=== PATIENT | female | born 1990 | race Caucasian/White ===

== ENCOUNTER 2025-03-23 06:43 | Emergency (ER) | payer MEDICAID, SELFPAY ==
[2025-03-23 06:43] VITALS: BP 136/99; PULSE 99; RESP 14; TEMP 36.6; O2SAT 97; BMI 25.0
--- NOTE | 2025-03-23 06:51 | CTR_ITS ---
PROCEDURE INFORMATION: Exam: CT Abdomen And Pelvis With Contrast Exam date and time: 03/23/2025 7:56 AM Age: 35 years old Clinical indication: Abdominal pain; Additional info: Abd pain TECHNIQUE: Imaging protocol: Computed tomography of the abdomen and pelvis with contrast. Radiation optimization: All CT scans at this facility use at least one of these dose optimization techniques: automated exposure control; mA and/or kV adjustment per patient size (includes targeted exams where dose is matched to clinical indication); or iterative reconstruction. Contrast material: OMNI 350; Contrast volume: 100 ml; Contrast route: INTRAVENOUS (IV); COMPARISON: No relevant prior studies available. RADIATION DOSE METRICS: Total DLP (mGy-cm): 469.63 FINDINGS: Liver: Normal. No mass. Gallbladder and biliary ducts: Normal. No calcified stones. No ductal dilation. Pancreas: Normal. No ductal dilation. Spleen: Normal. No splenomegaly. Adrenal glands: Normal. No mass. Kidneys and ureters: Left renal simple cyst measuring 1.9 x 1.7 cm. There is mild right-sided hydroureter without definite obstructing stone. There is enhancement of the right ureter. Stomach and bowel: No small bowel loop dilatation. Appendix: Appendix is normal. Intraperitoneal space: Unremarkable. No free air. No significant fluid collection. Vasculature: Unremarkable. No abdominal aortic aneurysm. Lymph nodes: Unremarkable. No enlarged lymph nodes. Urinary bladder: The bladder is distended. Reproductive: Unremarkable as visualized. Bones/joints: Unremarkable. No acute fracture. Soft tissues: Unremarkable. CT/CT abdomen pelvis w con* [id number] IMPRESSION: 1. The bladder is distended. Bladder outlet obstruction can not be excluded. Clinical correlation is advised. 2. There is mild right-sided hydroureter without definite obstructing stone. Obstructive uropathy can not be excluded. Clinical correlation is advised. 3. There is enhancement of the right ureter. UTI can not be excluded. COMMENTS: Consistent with the [employer]'s Incidental Findings Committee white paper (J Am Kelsea Radiol 2018): Any incidental renal lesion less than 1 cm or classified as too small to characterize, or any incidental cystic renal lesion characterized as simple-appearing, is likely benign. No follow-up imaging is recommended for these lesions per consensus recommendations based on imaging criteria.
--- NOTE | 2025-03-23 06:51 | XRR_ITS ---
PROCEDURE INFORMATION: Exam: XR Chest Exam date and time: 03/23/2025 7:58 AM Age: 35 years old Clinical indication: Pain; Chest pressure; Additional info: Cp TECHNIQUE: Imaging protocol: Radiologic exam of the chest. Views: 1 view. COMPARISON: CT abdomen pelvis w con* [id number] 03/23/2025 7:56 AM FINDINGS: Lungs: The pulmonary vessels are within normal limits. The lungs are clear. Pleural spaces: No pneumothorax. Heart/Mediastinum: The cardiomediastinal silhouette is within normal limits. Bones/joints: Osseous structure is unremarkable. XR/XR chest 1V portable [id number] IMPRESSION: No acute pulmonary finding.
--- NOTE | 2025-03-23 06:51 | ED_ITS ---
HPI - Abdominal Pain 2 General: Chief Complaint: Abdominal Pain Stated Complaint: abd pain Time Seen by Provider: 03/23/25 06:43 Source: patient and EMS Mode of arrival: EMS Limitations: no limitations History of Present Illness: 35-year-old female states that she is us ing IV methamphetamine this morning started having abdominal pain after and called the ambulance. Patient's sedated currently EMS had given her 200 mcg of fentanyl along with 1 mg of Dilaudid. She states her pain is improved but is fairly somnolent likely from the IV pain meds. No known fever. No vomiting or diarrhea Associated Symptoms: Denies chills, diarrhea, dysuria, fever(s), nausea and vomiting Related Data Home Medications ?Medication ?Instructions ?Recorded ?Confirmed No Known Home Medications 03/23/2503/09 Allergies Allergy/AdvReac Type Severity Reaction Status Date / Time strawberry Allergy Unknown Verified 03/23/25 06:46 Review of Systems 2 Const: Denies: fever(s), chills, body aches or change in appetite ENMT: Denies: throat pain or dental pain Card: Denies: chest pain Resp: Denies: dyspnea GI: Reports: abdominal pain; Denies: nausea, vomiting or diarrhea : Denies: dysuria Musc: Denies: neck pain or back pain Skin/Breast: Denies: rash Neuro: Denies: headache(s) Physical Exam 2 Const: COMMON NORMALS: no acute distress, patient oriented x3 and healthy appearing HENMT: COMMON NORMALS: normocephalic and atraumatic HEAD & SCALP: n ormocephalic and atraumatic Eye: COMMON NORMALS: Equal, round and reactive pupils present and EOMs intact bilaterally PUPIL: Yes Equal, round and reactive pupils present Neck/C-Spine: COMMON NORMALS: full ROM and supple Chest: COMMONS NORMALS: normal inspection of the chest and normal palpation of entire chest wall Resp: COMMON NORMALS: normal respiratory effort, No retractions, No use of accessory muscles and clear to auscultation bilaterally AUSCULTATION: clear to auscultation bilaterally Cardio: COMMON NORMALS: regular rate, regular rhythm and No murmurs present (Cardio) RATE: regular rate RHYTHM: regular rhythm GI: COMMON NORMALS: Normal to inspection, nondistended, normoactive bowel sounds present, Soft to palpation, non-tender and no masses PALPATION: Yes Soft to palpation Extremity: COMMON NORMALS: normal to inspection and full ROM Neuro: COMMON NORMALS: patient oriented x3, moves all extremities and no focal motor deficits Psych: COMMON NORMALS: mental status grossly normal, Normal thought process present and cooperative THOUGHT PROCESS: Normal thought process present Skin: COMMON NORMALS: no rashes or lesions noted and no wounds GENERAL SKIN EXAM: no rashes or lesions noted Course 2 Vital Signs: Vital signs: Vital Signs Temperature 97.9 F 03/23/25 06:43 Pulse Rate 99 03/23/25 06:43 Respiratory Rate 14 03/23/25 06:43 Blood Pressure 136/99 03/23/25 06:43 Pulse Oximetry 97 03/23/25 06:43 Oxygen Delivery Me thod Room Air 03/23/25 06:43 MDM - Abdominal Pain Medical Decision Making Patient presents here with abdominal pain imaging blood work here is all normal she is now awake and alert and pain is much improved she is stable for discharge she is follow-up with PCP return if worsening. Medical Records I reviewed the patient's medical records. Lab Data I reviewed the patient's lab results. 03/23/25 06:00 03/23/25 06:00 Labs/Radiology: Radiology Impressions Abdomen/Pelvis CT 03/23/25 06:51 IMPRESSION: 1. The bladder is distended. Bladder outlet obstruction can not be excluded. Clinical correlation is advised. 2. There is mild right-sided hydroureter without definite obstructing stone. Obstructive uropathy can not be excluded. Clinical correlation is advised. 3. There is enhancement of the right ureter. UTI can not be excluded. COMMENTS: Consistent with the [employer]'s Incidental Findings Committee white paper (J Am Kelsea Radiol 2018): Any incidental renal lesion less than 1 cm or classified as too small to characterize, or any incidental cystic renal lesion characterized as simple-appearing, is likely benign. No follow-up imaging is recommended for these lesions per consensus recommendations based on imaging criteria. Chest X-Ray 03/23/25 06:51 IMPRESSION: No acute pulmonary finding. Laboratory Results WBC 7.44 10^3/uL (3.29-11.43) 03/23/25 06:00 RBC 4.63 10^6/uL (3.85-5.65) 03/23/25 06:00 Hgb 13.60 g/dL (11.27-16.99) 03/23/25 06:00 Hct 40.7 % (36-47) 03/23/25 06:00 MCV 87.9 fl (85-98) 03/23/25 06:00 MCH 29.4 pg (27-33) 03/23/25 06:00 MCHC 33.4 g/dL (30-55) 03/23/25 06:00 RDW 13.0 % (12.1-15.1) 03/23/25 06:00 Plt Count 351 10^3/cmm (157-399) 03/23/25 06:00 MPV 9.3 fL (7.4-10.4) 03/23/25 06:00 Neut % (Auto) 62.9 % 03/23/25 06:00 Lymph % (Auto) 31.7 % 03/23/25 06:00 [place] % (Auto) 4.6 % 03/23/25 06:00 Eos % (Auto) 0.1 % 03/23/25 06:00 Baso % (Auto) 0.3 % 03/23/25 06:00 Neut # (Auto) 4.68 10^3/uL (1.8-7.7) 03/23/25 06:00 Lymph # (Auto) 2.4 10^3/uL (0.8-4.8) 03/23/25 06:00 [place] # (Auto) 0.3 10^3/uL (0.2-0.9) 03/23/25 06:00 Eos # (Auto) 0.0 10^3/uL (0.0-0.8) 03/23/25 06:00 Baso # (Auto) 0.0 10^3/uL (0.0-0.1) 03/23/25 06:00 Nucleated RBC % (auto) 0 % 03/23/25 06:00 Nucleated RBCs # 0.0 /100WBC 03/23/25 06:00 Sodium 141 mmol/L (136-145) 03/23/25 06:00 Potassium 3.4 mmol/L (3.5-5.1) L 03/23/25 06:00 Chloride 101 mmol/L (98-107) 03/23/25 06:00 Carbon Dioxide 21 mmol/L (22-29) L 03/23/25 06:00 Anion Gap 22.4 (5-19) H 03/23/25 06:00 BUN 5 mg/dL (6-20) L 03/23/25 06:00 Creatinine 0.7 mg/dL (0.5-0.9) 03/23/25 06:00 GFR Calculation 96.4 mL/min (90-130) 03/23/25 06:00 Glucose 101 mg/dL (65-115) 03/23/25 06:00 Calculated Osmolality 289 mOsm/kg (285-295) 03/23/25 06:00 Calcium 10.5 mg/dL (8.5-10.5) 03/23/25 06:00 Total Bilirubin 0.3 mg/dL (0.15-1.2) 03/23/25 06:00 AST 24 U/L (0-32) 03/23/25 06:00 ALT 19 U/L (0-33) 03/23/25 06:00 Alkaline Phosphatase 68 U/L (35-105) 03/23/25 06:00 Total Protein 7.9 g/dL (6.6-8.7) 03/23/25 06:00 Albumin 4.5 g/dL (3.5-5.2) 03/23/25 06:00 Globulin 3.4 g/dL (1.3-4.6) 03/23/25 06:00 Lipase 18 U/L (13-60) 03/23/25 06:00 HCG, Qual Negative (Negative) 03/23/25 06:00 Urine Color Yellow (Yellow) 03/23/25 07:25 Urine Appearance Clear (CLEAR) 03/23/25 07:25 Urine pH 7.0 (5-7) 03/23/25 07:25 Ur Specific [place] 1.006 (1.005-1.030) 03/23/25 07:25 Urine Protein Negative (Negative) 03/23/25 07: Urine Glucose (UA) Negative (Normal) 03/23/25 07:25 Urine Ketones Negative (Negative) 03/23/25 07:25 Urine Blood Negative (Negative) 03/23/25 07:25 Urine Nitrate Negative (Negative) 03/23/25 07: Urine Bilirubin Negative (Negative) 03/23/25 07:25 Urine Urobilinogen 0.2 mg/dL (Negative) 03/23/25 07:25 Ur Leukocyte Esterase Negative (Negative) 03/23/25 07:25 Urine RBC 0-2 /hpf (0-2) 03/23/25 07:25 Urine WBC 0-5 /hpf (0-5) 03/23/25 07:25 Ur Squamous Epith Cells 0-5 /hpf (0-5) 03/23/25 07:25 Amorphous Sediment Not Reportable 03/23/25 07:25 Urine Bacteria None seen /hpf (NONE) 03/23/25 07:25 Hyaline Casts 0-4 /lpf H 03/23/25 07:25 All radiology interpretation(s) finalized by discharge Discharge Plan Discharge Patient Disposition: Home Clinical Impression: Abdominal pain Condition: Stable Prescriptions: No Action No Known Home Medications Discharge Orders: Discharge ED (Routine); Ordered 03/23/25 Ordered By: Srini Cody Discharge Diet: Advance as tolerated Discharge Activity: Resume usual activity Patient Instructions: Abdominal Pain (ED) Print Language: Palauan Coding Level of Care Code ED Vocational Psychologist for Neeraj Beltran
[2025-03-23 06:56] LABS: Basophils % 0.3 %; Eosinophils % 0.1 %; Hematocrit 40.7 % (36-47); Lymphocytes # 2.4 10^3/uL (0.8-4.8); Lymphocytes % 31.7 %; Mean Corpuscular HGB Conc 33.4 g/dL (30-55); Mean Corpuscular Hemoglobin 29.4 pg (27-33); Mean Corpuscular Volume 87.9 fl (85-98); Mean Platelet Volume 9.3 fL (7.4-10.4); Monocytes # 0.3 10^3/uL (0.2-0.9); Monocytes % 4.6 %; Neutrophils # 4.68 10^3/uL (1.8-7.7); Neutrophils % 62.9 %; Nucleated Red Blood Cells % 0 %; Platelet Count 351 10^3/cmm (157-399); Red Blood Count 4.63 10^6/uL (3.85-5.65); White Blood Count 7.44 10^3/uL (3.29-11.43)
[2025-03-23 07:12] LABS: HCG, Serum Qual Negative (Negative)
[2025-03-23 07:23] LABS: Alanine Aminotransferase 19 U/L (0-33); Albumin Level 4.5 g/dL (3.5-5.2); Alkaline Phosphatase 68 U/L (35-105); Anion Gap 22.4 (5-19); Aspartate Amino Transferase 24 U/L (0-32); Blood Urea Nitrogen 5 mg/dL (6-20); Calcium 10.5 mg/dL (8.5-10.5); Carbon Dioxide 21 mmol/L (22-29); Chloride 101 mmol/L (98-107); Creatinine Clr Calc Pharmacy 119.0831; Globulin 3.4 g/dL (1.3-4.6); Glomerular Filtration Rate 96.4 mL/min (90-130); Glucose 101 mg/dL (65-115); Lipase 18 U/L (13-60); Osmolality Calculated 289 mOsm/kg (285-295); Potassium 3.4 mmol/L (3.5-5.1); Sodium 141 mmol/L (136-145); Total Bilirubin 0.3 mg/dL (0.15-1.2); Total Protein 7.9 g/dL (6.6-8.7)
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
--- NOTE | 2025-03-23 07:43 | ECG_ITS ---
[facility]23 Pat Name: Enrique Mendoza Department: Room: Gender: Female [employer]: : 1990 Requested By: Srini Cody Order Number: [id number] Henri[place] MD: Angela Wolff M.D. Measurements Intervals [place] Rate: 78 P: 64 SC: 158 QRS: 60 QRSD: 101 T: 51 QT: 410 QTc: 468 Interpretive Statements SINUS RHYTHM WITH SINUS ARRHYTHMIA LOW QRS VOLTAGE IN PRECORDIAL LEADS [QRS DEFLECTION < 1.0 mV IN CHEST LEADS] INCOMPLETE RIGHT BUNDLE BRANCH BLOCK [90+ ms QRS DURATION, TERMINAL R IN V1/V2, 40+ ms S IN I/aVL/V4/V5/V6] No previous ECG available for comparison Electronically Signed On 03-23-2025 21:31:59 CDT by Angela Wolff M.D. [email or web address]
[2025-03-23 07:49] LABS: Bilirubin Urine Negative (Negative); Blood Urine Negative (Negative); Glucose Urine UA Negative (Normal); Ketones Urine Negative (Negative); Leukocyte Esterase Urine Negative (Negative); Nitrate Urine Negative (Negative); Protein Urine Negative (Negative); Specific Gravity, Urine 1.006 (1.005-1.030); Urine Appearance Clear (CLEAR); Urine Color Yellow (Yellow); Urobilinogen Urine 0.2 mg/dL (Negative)
[2025-03-23 07:51] LABS: Add Urine Microscopic? YES; Bacteria Urine None Seen /hpf; Hyaline Casts Urine 0-4 /lpf; RBC Urine 0-2 /hpf (0-2); Squamous Epithelial Cell Urine 0-5 /hpf (0-5); WBC Urine 0-5 /hpf (0-5)
[2025-03-23] MEDS: iohexol 350 mg/mL 500 mL Btl (per mL) IV (07:57)
== END 2025-03-23 08:50 | disposition home or self-care (01) ==
PROVIDERS: Emergency Provider Emergency Medicine
DX: R10.9 Unspecified abdominal pain (principal); F15.10 Other stimulant abuse, uncomplicated
CPT/HCPCS: 71045; 74177; 80053; 81001; 83690; 84703; 85025; 93005; 99285